=== PATIENT | male | born 1965 | race Caucasian/White ===

== ENCOUNTER 2018-12-10 15:55 | Emergency (ER) | payer OTHER ==
[~2018-12-10] VITALS: Ht 182.9 cm; Wt 68.0 kg
== END 2018-12-10 17:50 | disposition home or self-care (01) ==
LOC: ER 15:55
DX: T40.1X1A Poisoning by heroin, accidental (unintentional), initial encounter (principal); F17.210 Nicotine dependence, cigarettes, uncomplicated
CPT/HCPCS: 96360; 96361; 99284-25; J7030

== ENCOUNTER 2019-10-04 11:41 | Emergency (ER) | payer OTHER ==
[~2019-10-04] VITALS: Ht 182.9 cm; Wt 70.3 kg
[2019-10-04] MEDS ORDERED: Ear System15 ML BOTHEARS (12:05)
[2019-10-04] MEDS ORDERED: DOXYCYCLINE HY100 M1 PO (12:05)
== END 2019-10-04 12:15 | disposition home or self-care (01) ==
LOC: ER 11:41
DX: S30.811A Abrasion of abdominal wall, initial encounter (principal); H61.23 Impacted cerumen, bilateral; F17.210 Nicotine dependence, cigarettes, uncomplicated; X58.XXXA Exposure to other specified factors, initial encounter
CPT/HCPCS: 99283

== ENCOUNTER 2019-10-13 08:59 | Emergency (ER) | payer OTHER ==
[~2019-10-13] VITALS: Ht 182.9 cm; Wt 70.3 kg
[~2019-10-13 08:59] MED LIST: DOXYCYCLINE HY100 M1 PO; Ear System15 ML BOTHEARS
== END 2019-10-13 09:55 | disposition home or self-care (01) ==
LOC: ER 08:59
DX: S00.461A Insect bite (nonvenomous) of right ear, initial encounter (principal); H61.21 Impacted cerumen, right ear; F17.210 Nicotine dependence, cigarettes, uncomplicated; W57.XXXA Bitten or stung by nonvenomous insect and other nonvenomous arthropods, initial encounter
CPT/HCPCS: 99282

== ENCOUNTER 2019-10-27 16:24 | Emergency (ER) | payer OTHER ==
[~2019-10-27] VITALS: Ht 182.9 cm; Wt 63.5 kg
== END 2019-10-27 19:02 | disposition home or self-care (01) ==
LOC: ER 16:24
DX: S00.412A Abrasion of left ear, initial encounter (principal); S00.411A Abrasion of right ear, initial encounter; T16.1XXA Foreign body in right ear, initial encounter; F17.210 Nicotine dependence, cigarettes, uncomplicated; F22 Delusional disorders; X78.9XXA Intentional self-harm by unspecified sharp object, initial encounter
CPT/HCPCS: 99282

== ENCOUNTER 2019-10-29 15:00 | Emergency (ER) | payer OTHER | END 2019-10-29 15:23 | disposition left against medical advice (07) | LOC: ER 15:00 | DX: Z53.21 Procedure and treatment not carried out due to patient leaving prior to being seen by health care provider (principal) ==

== ENCOUNTER 2021-06-17 10:57 | Emergency (ER) | payer OTHER ==
[~2021-06-17] VITALS: Ht 182.9 cm; Wt 68.0 kg
[2021-06-17] MEDS ORDERED: CELE100 PO (12:22)
== END 2021-06-17 13:20 | disposition home or self-care (01) ==
LOC: ER 10:57
DX: S20.212A Contusion of left front wall of thorax, initial encounter (principal); F17.210 Nicotine dependence, cigarettes, uncomplicated; W01.0XXA Fall on same level from slipping, tripping and stumbling without subsequent striking against object, initial encounter
CPT/HCPCS: 71046; A9270

== ENCOUNTER 2022-04-15 08:51 | Emergency (ER) | payer OTHER ==
[~2022-04-15] VITALS: Ht 182.9 cm; Wt 68.0 kg
[~2022-04-15 08:51] MED LIST changes: +CELE100 PO
[2022-04-15] MEDS ORDERED: CYCL10 PO (11:31)
== END 2022-04-15 12:00 | disposition home or self-care (01) ==
LOC: ER 08:51
DX: M54.2 Cervicalgia (principal); F17.210 Nicotine dependence, cigarettes, uncomplicated
CPT/HCPCS: 72040; 73030; A9270

== ENCOUNTER 2022-07-03 09:52 | Day surgery (SDC) | payer OTHER ==
[~2022-07-03] VITALS: Ht 182.9 cm; Wt 63.7 kg
[~2022-07-03 09:52] MED LIST changes: +CYCL10 PO
== END 2022-07-03 12:12 | disposition home or self-care (01) ==
LOC: ORSCSDS 09:52
PROVIDERS: Student in an Organized Health Care Education/Training Program
PROC: 0DBL8ZX Excision of Transverse Colon, Via Natural or Artificial Opening Endoscopic, Diagnostic (ICD-10-PCS; principal; 2022-07-03 10:15)
DX: Z12.11 Encounter for screening for malignant neoplasm of colon (principal); D12.3 Benign neoplasm of transverse colon; F17.210 Nicotine dependence, cigarettes, uncomplicated; Z79.899 Other long term (current) drug therapy
CPT/HCPCS: 88305; J2250; J2704; J7120

== ENCOUNTER 2024-06-13 18:05 | Emergency (ER) | payer OTHER ==
[~2024-06-13] VITALS: Ht 182.9 cm; Wt 70.3 kg
[2024-06-13 18:11] VITALS: BP 143/98
[2024-06-13] MEDS ORDERED: Trimethoprim/Sulfamethoxazole DS Tab PO ONE (19:20)
[2024-06-13] MEDS ORDERED: Diphth,Pertuss(Acell),Tet Vac 0.5 ML VIAL IM ONE (19:20)
[2024-06-13] MEDS ORDERED: SULTRIDS PO (19:44)
== END 2024-06-13 20:07 | disposition home or self-care (01) ==
LOC: ER 18:05
DX: N61.1 Abscess of the breast and nipple (principal); F17.210 Nicotine dependence, cigarettes, uncomplicated; Z23 Encounter for immunization
CPT/HCPCS: 10061; 90471; 90715; 99283-25; A9270

== ENCOUNTER 2024-06-16 18:23 | Emergency (ER) | payer OTHER ==
[~2024-06-16] VITALS: Ht 182.9 cm; Wt 68.0 kg
[~2024-06-16 18:23] MED LIST changes: +SULTRIDS PO
[2024-06-16 18:52] VITALS: BP 144/91
[2024-06-16] MEDS ORDERED: ALBU90OI INH (20:33)
== END 2024-06-16 20:50 | disposition home or self-care (01) ==
LOC: ER 18:23
DX: L02.213 Cutaneous abscess of chest wall (principal); F17.210 Nicotine dependence, cigarettes, uncomplicated
CPT/HCPCS: 99282